=== PATIENT | female | born 1985 | race Caucasian/White ===

== ENCOUNTER 2018-11-04 16:16 | Emergency (ER) | payer OTHER ==
--- NOTE | 2018-11-04 16:21 | ER Report ---
History and Physical Time Seen By MD: 16:21 HPI/ROS 32-year-old female with no significant past medical history presents to the emergency department after experiencing an approximately 30-40 minute episode of palpitations. Also states that during that time her apple watch was telling her that her HR was 125-140. She denied any chest pain. No PE risk factors. Has been more stressed and less PO fluids recently. Is a visiting lecturer at . No fever/chills/cough. No other symptoms of hyperthyroid. SYmptoms self resolved. Remainder of the 14 system rev: Yes Allergies: Coded Allergies: No Known Drug Allergies (Unverified , 11/04/18) Home Meds No Active Prescriptions or Reported Meds Reviewed Nurses Notes: Yes Old Medical Records Reviewed: Yes Hx Smoking: No Smoking Status: Never Smoker Exposure to Second Hand Smoke?: No Hx Substance Use Disorder: No Hx Alcohol Use: No Constitutional Vital Sign - Last 24 Hours 11/04/18 11/04/18 11/04/18 11/04/18 16:16 16:21 16:29 16:30 Temp 98.2 Pulse 93 86 Resp 12 B/P (MAP) 147/102 (117) 147/102 123/86 (98) Pulse Ox 95 97 O2 Delivery Room Air 11/04/18 11/04/18 11/04/18 11/04/18 16:46 17:00 17:16 17:21 Pulse 76 67 72 Resp 11 10 30 B/P (MAP) 113/79 (90) Pulse Ox 96 95 95 11/04/18 11/04/18 11/04/18 17:30 17:51 18:21 Pulse 56 77 Resp 16 12 B/P (MAP) 112/78 (89) Pulse Ox 97 Physical Exam General Appearance: The patient is alert, has no immediate need for airway protection and no current signs of toxicity. Eyes: Pupils equal and round no injection. Respiratory: Chest is non tender, lungs are clear to auscultation. Cardiac: regular rate and rhythm Gastrointestinal: Abdomen is soft and non tender, no masses, bowel sounds normal. Neck: Neck is supple and non tender. Normal thyroid. DIFFERENTIAL DIAGNOSIS: After history and physical exam differential diagnosis was considered for palpitations including but not limited to myocardial ischem ia, pericarditis pulmonary embolus, chest wall pain, pleural inflammation and pulmonary infectious causes. Medical Decision Making Data Points Result Diagram: 11/04/18 1712 11/04/18 1712 Laboratory Hematology Test 11/04/18 17:12 11/04/18 18:06 Red Blood Count 4.87 M/uL (4.17-5.56) Mean Corpuscular Volume 92.5 fL (80.0-96.0) Mean Corpuscular Hemoglobin 31.5 pg (26.0-33.0) Mean Corpuscular Hemoglobin Concent 34.0 g/dL (32.0-36.0) Red Cell Distribution Width 13.7 % (11.5-14.5) Mean Platelet Volume 8.0 fL (7.2-11.1) Neutrophils (%) (Auto) 52.3 % (39.4-72.5) Lymphocytes (%) (Auto) 39.4 % (17.6-49.6) Monocytes (%) (Auto) 6.8 % (4.1-12.4) Eosinophils (%) (Auto) 0.7 % (0.4-6.7) Basophils (%) (Auto) 0.8 % (0.3-1.4) Nucleated RBC Relative Count (auto) 0.0 /100WBC Neutrophils # (Auto) 4.0 K/uL (2.0-7.4) Lymphocytes # (Auto) 3.0 K/uL (1.3-3.6) Monocytes # (Auto) 0.5 K/uL (0.3-1.0) Eosinophils # (Auto) 0.1 K/uL (0.0-0.5) Basophils # (Auto) 0.1 K/uL (0.0-0.1) Nucleated RBC Absolute Count (auto) 0.00 K/uL Sodium Level 140 mmol/L (137-145) Potassium Level 3.7 mmol/L (3.5-5.0) Chloride Level 104 mmol/L (98-107) Carbon Dioxide Level 26 mmol/L (22-31) Blood Urea Nitrogen 15 mg/dl (7-18) Creatinine 0.80 mg/dl (0.52-1.04) Glomerular Filtration Rate Calc > 60.0 Random Glucose 87 mg/dl (75-110) Calcium Level 9.0 mg/dl (8.4-10.2) Magnesium Level 2.1 mg/dl (1.7-2.2) Total Bilirubin 0.2 mg/dl (0.2-1.3) Aspartate Amino Transf (AST/SGOT) 17 U/L (0-35) Alanine Aminotransferase (ALT/SGPT) 14 U/L (0-56) Alkaline Phosphatase 51 U/L (0-126) Total Protein 7.7 g/dl (6.3-8.2) Albumin 4.6 g/dl (3.5-5.0) Urine Color Yellow Urine Clarity Clear Urine pH 5.0 pH (4.8-9.5) Urine Specific [place] 1.021 Urine Protein Negative mg/dL (NEGATIVE) Urine Glucose (UA) Negative mg/dL (NEGATIVE) Urine Ketones Trace mg/dL (NEGATIVE) Urine Blood Negative (NEGATIVE) Urine Nitrite Negative (NEGATIVE) Urine Bilirubin Negative (NEGATIVE) Urine Urobilinogen Negative mg/dL (0.2-1.9) Urine Leukocyte Esterase Negative (NEGATIVE) Urine RBC None /HPF (0-2/HPF) Urine WBC <1 /HPF (0-5/HPF) Urine Squamous Epithelial Cells Few /LPF (</=FEW) Urine Bacteria Negative /HPF (NONE-FEW) Urine Mucus Few /HPF (NONE-FEW) Chemistry Test 11/04/18 17:12 11/04/18 18:06 White Blood Count 7.7 k/uL (4.5-11.0) Red Blood Count 4.87 M/uL (4.17-5.56) Hemoglobin 15.3 g/dL (12.0-16.0) Hematocrit 45.1 % (34.0-47.0) Mean Corpuscular Volume 92.5 fL (80.0-96.0) Mean Corpuscular Hemoglobin 31.5 pg (26.0-33.0) Mean Corpuscular Hemoglobin Concent 34.0 g/dL (32.0-36.0) Red Cell Distribution Width 13.7 % (11.5-14.5) Platelet Count 293 K/uL (150-450) Mean Platelet Volume 8.0 fL (7.2-11.1) Neutrophils (%) (Auto) 52.3 % (39.4-72.5) Lymphocytes (%) (Auto) 39.4 % (17.6-49.6) Monocytes (%) (Auto) 6.8 % (4.1-12.4) Eosinophils (%) (Auto) 0.7 % (0.4-6.7) Basophils (%) (Auto) 0.8 % (0.3-1.4) Nucleated RBC Relative Count (auto) 0.0 /100WBC Neutrophils # (Auto) 4.0 K/uL (2.0-7.4) Lymphocytes # (Auto) 3.0 K/uL (1.3-3.6) Monocytes # (Auto) 0.5 K/uL (0.3-1.0) Eosinophils # (Auto) 0.1 K/uL (0.0-0.5) Basophils # (Auto) 0.1 K/uL (0.0-0.1) Nucleated RBC Absolute Count (auto) 0.00 K/uL Glomerular Filtration Rate Calc > 60.0 Calcium Level 9.0 mg/dl (8.4-10.2) Magnesium Level 2.1 mg/dl (1.7-2.2) Total Bilirubin 0.2 mg/dl (0.2-1.3) Aspartate Amino Transf (AST/SGOT) 17 U/L (0-35) Alanine Aminotransferase (ALT/SGPT) 14 U/L (0-56) Alkaline Phosphatase 51 U/L (0-126) Total Protein 7.7 g/dl (6.3-8.2) Albumin 4.6 g/dl (3.5-5.0) Urine Color Yellow Urine Clarity Clear Urine pH 5.0 pH (4.8-9.5) Urine Specific [place] 1.021 Urine Protein Negative mg/dL (NEGATIVE) Urine Glucose (UA) Negative mg/dL (NEGATIVE) Urine Ketones Trace mg/dL (NEGATIVE) Urine Blood Negative (NEGATIVE) Urine Nitrite Negative (NEGATIVE) Urine Bilirubin Negative (NEGATIVE) Urine Urobilinogen Negative mg/dL (0.2-1.9) Urine Leukocyte Esterase Negative (NEGATIVE) Urine RBC None /HPF (0-2/HPF) Urine WBC <1 /HPF (0-5/HPF) Urine Squamous Epithelial Cells Few /LPF (</=FEW) Urine Bacteria Negative /HPF (NONE-FEW) Urine Mucus Few /HPF (NONE-FEW) Urinalysis Test 11/04/18 18:06 Urine Color Yellow Urine Clarity Clear Urine pH 5.0 pH (4.8-9.5) Urine Specific [place] 1.021 Urine Protein Negative mg/dL (NEGATIVE) Urine Glucose (UA) Negative mg/dL (NEGATIVE) Urine Ketones Trace mg/dL (NEGATIVE) Urine Blood Negative (NEGATIVE) Urine Nitrite Negative (NEGATIVE) Urine Bilirubin Negative (NEGATIVE) Urine Urobilinogen Negative mg/dL (0.2-1.9) Urine Leukocyte Esterase Negative (NEGATIVE) Urine RBC None /HPF (0-2/HPF) Urine WBC <1 /HPF (0-5/HPF) Urine Squamous Epithelial Cells Few /LPF (</=FEW) Urine Bacteria Negative /HPF (NONE-FEW) Urine Mucus Few /HPF (NONE-FEW) EKG/Imaging EKG Interpretation 12 lead EKG: Rhythm: normal sinus rhythm [place]: normal QRS: normal ST segments: normal No [place], no WPW, no prolonged QT, no LVH Monitor Interpretation: Normal Sinus Rhythm ED Course/Re-evaluation ED Course Brief episode of palpitations. Self resolved. No chest pain or SOB. No other symptoms of hyperthyroid. Has been more stressed and taking less PO. No PE risk factors. No syncope. Normal EKG. PVCs noted on monitor by the nurse. No murmurs. Decision to Disposition Date: Nov 04, 2018 Decision to Disposition Time: 18:50 Depart Departure Latest Vital Signs Vital Signs Date Time Temp Pulse Resp B/P (MAP) Pulse Ox O2 Delivery O2 Flow Rate FiO2 11/04/18 18:21 77 12 11/04/18 17:51 97 11/04/18 17:30 112/78 (89) 11/04/18 16:29 98.2 Room Air Impression: Primary Impression: Palpitations Condition: Improved Disposition: HOME OR SELF-CARE Referrals: [facility] MD New Scripts No Active Prescriptions or Reported Meds Patient Instructions: Palpitations (ED) ANTHONY NUNES MD Nov 04, 2018 16:21
[2018-11-04] MEDS ORDERED: NS(*) 0.9% 1000 ML BAG 1,000 ML IV ONE (17:05)
--- NOTE | 2018-11-04 17:05 | EKG ---
FACILITY: [facility] PATIENT NAME: DENISHA SOTO : [id number] MR: [id number] V: [id number] EXAM DATE: ORDERING PHYSICIAN: ANTHONY NUNES TECHNOLOGIST: Test Reason : fast heart rate Blood Pressure : / mmHG Vent. Rate : 078 BPM Atrial Rate : 078 BPM P-R Int : 144 ms QRS Dur : 088 ms QT Int : 378 ms P-R-T Axes : 068 057 049 degrees QTc Int : 430 ms Normal sinus rhythm with sinus arrhythmia Normal ECG No previous ECGs available Confirmed by THERON BARBER ([id number]) on 11/04/2018 11:15:02 PM Referred By: Confirmed By:THERON BARBER
[2018-11-04 17:23] LABS: PLATELET COUNT, AUTOMATED 293 K/uL (150-450)
[2018-11-04 18:57] VITALS: BP 128/82
== END 2018-11-04 19:04 | disposition home or self-care (01) ==
LOC: ER 16:29
DX: R00.2 Palpitations (principal)
CPT/HCPCS: 81001; 83735; 84439; 84443; 84481; 85025; 93005; 96360; 99283; J7030; 82040; 82247; 82310; 82374; 82435; 82565; 82947; 84075; 84132; 84155; 84295; 84450; 84460; 84520

== ENCOUNTER → 2018-11-22 | Outpatient (CLI) | payer OTHER ==
--- NOTE | 2018-11-22 11:22 | RADIOLOGY IMAGING REPORT ---
FACILITY: [facility] PATIENT NAME: Sridhar Martinez : 1985 MR: [id number] V: [id number] EXAM DATE: ORDERING PHYSICIAN: [facility] TECHNOLOGIST: Location: [facility] Patient: Sridhar Martinez : 1985 Visit/Account:[id number] Date of Sevice: 11/22/2018 L-SPINE 2 OR 3 VIEW, HIP LEFT HISTORY: sciatic nerve pain COMPARISON: None. FINDINGS: Subtle left curve lumbar spine. Bony alignment anatomic. No fracture. There is degenerative disc n arrowing at L5-S1. No significant facet arthrosis. Frontal projection demonstrates partial sacraliz ation of the L5 vertebra with enlarged transverse process on the right articulating with the sacrum. Two views of the left hip are submitted. Hips are unremarkable. Pubic rami are intact. IUD is note d. No degenerative change left hip. Partial right-sided sacralization L5. No fracture. SI joints are symmetric with mild degenerative changes. IMPRESSION: Subtle left curvature lumbar spine. Transitional lumbosacral vertebra. Mild to moderate disc narrowing L5-S1. Unremarkable bony appearance left hip Mild, symmetric sclerosis involving the SI joints. Report Dictated By: Hugo Galindo MD at 11/22/2018 11:10 AM Report E-Signed By: Hugo Galindo MD at 11/22/2018 11:17 AM WSN:[id number]
--- NOTE | 2018-11-22 11:22 | RADIOLOGY IMAGING REPORT ---
FACILITY: [facility] [place] PATIENT NAME: Sridhar Martinez : 1985 MR: [id number] V: [id number] EXAM DATE: ORDERING PHYSICIAN: [facility] TECHNOLOGIST: Location: [facility] [place] Patient: Sridhar Martinez : 1985 Visit/Account:[id number] Date of Sevice: 11/22/2018 L-SPINE 2 OR 3 VIEW, HIP LEFT HISTORY: sciatic nerve pain COMPARISON: None. FINDINGS: Subtle left curve lumbar spine. Bony alignment anatomic. No fracture. There is degenerative disc n arrowing at L5-S1. No significant facet arthrosis. Frontal projection demonstrates partial sacraliz ation of the L5 vertebra with enlarged transverse process on the right articulating with the sacrum. Two views of the left hip are submitted. Hips are unremarkable. Pubic rami are intact. IUD is note d. No degenerative change left hip. Partial right-sided sacralization L5. No fracture. SI joints are symmetric with mild degenerative changes. IMPRESSION: Subtle left curvature lumbar spine. Transitional lumbosacral vertebra. Mild to moderate disc narrowing L5-S1. Unremarkable bony appearance left hip Mild, symmetric sclerosis involving the SI joints. Report Dictated By: Hugo Galindo MD at 11/22/2018 11:10 AM Report E-Signed By: Hugo Galindo MD at 11/22/2018 11:17 AM WSN:[id number]
== END ==
LOC: RAD 10:08
PROVIDERS: ATTEND Internal Medicine
DX: M41.86 Other forms of scoliosis, lumbar region (principal); M47.897 Other spondylosis, lumbosacral region
CPT/HCPCS: 72100